=== PATIENT | male | born 1995 | race Caucasian/White ===

== ENCOUNTER 2022-02-03 10:34 | Emergency (ER) | payer OTHER, SELFPAY ==
[~2022-02-03] VITALS: Ht 182.9 cm; Wt 102.4 kg
[2022-02-03] MEDS ORDERED: CLAR5TAB11 PO (10:42)
[2022-02-03] MEDS ORDERED: NEXI40CA PO (10:42)
[2022-02-03 14:13] VITALS: BP 133/66
== END 2022-02-03 14:14 | disposition home or self-care (01) ==
LOC: M ED 10:34
DX: R22.43 Localized swelling, mass and lump, lower limb, bilateral (principal); K21.9 Gastro-esophageal reflux disease without esophagitis; Z79.2 Long term (current) use of antibiotics; Z79.83 Long term (current) use of bisphosphonates